=== PATIENT | female | born 2005 | race Caucasian/White ===

== ENCOUNTER 2024-07-05 20:58 | Emergency (ER) | payer MEDICAID ==
[2024-07-05 21:57] VITALS: BP 126/59
[2024-07-05 22:39] VITALS: PULSE 88
== END 2024-07-05 22:45 | disposition home or self-care (01) ==
LOC: JP.ED 20:58
DX: O26.851 Spotting complicating pregnancy, first trimester (principal); Z88.0 Allergy status to penicillin; Z79.899 Other long term (current) drug therapy; Z3A.10 10 weeks gestation of pregnancy
CPT/HCPCS: 99283